=== PATIENT | male | born 1945 | race Caucasian/White ===

== ENCOUNTER 2017-09-19 17:37 | Emergency (ER) | payer OTHER, MEDICAID ==
[~2017-09-19] VITALS: Ht 167.6 cm; Wt 88.5 kg
[2017-09-19 18:17] VITALS: BP_SYST 156
--- NOTE | 2017-09-19 20:00 | NUR ---
Patient to ER bed H1 to gown for evaluation. Side rails up.
--- NOTE | 2017-09-19 20:10 | NUR ---
Patient AOx4, ambulatory, presents to ER with complaint of right shoulder pain x3 weeks. Patient states no injury to site. Pain increases with movement. No other symptoms or complaints at this time.
--- NOTE | 2017-09-19 20:23 | NUR ---
NISSA MORALEZ Kwaw at bedside for medical evaluation.
[2017-09-19 20:53] VITALS: BP_SYST 143
--- NOTE | 2017-09-19 20:53 | NUR ---
Patient given written and verbal discharge instructions and verbalizes understanding. ER MD discussed with patient the results and treatment provided. Patient in stable condition. ID arm band removed. Rx of Naprosyn given. Patient educated on pain management and to follow up with PMD. Pain Scale 2/10 tolerable to patient. Opportunity for questions provided and answered.
== END 2017-09-19 20:53 | disposition home or self-care (01) ==
LOC: SED 17:37
DX: S43.401A Unspecified sprain of right shoulder joint, initial encounter (principal); E11.9 Type 2 diabetes mellitus without complications; I10 Essential (primary) hypertension; E78.00 Pure hypercholesterolemia, unspecified; X58.XXXA Exposure to other specified factors, initial encounter; Y93.89 Activity, other specified; Y92.89 Other specified places as the place of occurrence of the external cause; Y99.8 Other external cause status
CPT/HCPCS: 73030; 99284